=== PATIENT | male | born 1965 | race Caucasian/White ===

== ENCOUNTER 2024-10-04 13:43 | Emergency (ER) | payer OTHER, SELFPAY ==
[2024-10-04 13:55] VITALS: BP 147/70; PULSE 68; RESP 18; TEMP 36.9; O2SAT 97; BMI 27.7
--- NOTE | 2024-10-04 15:20 | ED.MALEGU ---
HPI - Male Genitourinary General Chief complaint: Urogenital-Male Stated complaint: Sent from [place], Severe R Hydroureteronephros Time Seen by Provider: 10/04/24 15:00 Source: patient Mode of arrival: Ambulatory History of Present Illness HPI Narrative: 59y male history of hypertension dyslipidemia diabetes was seen at the [place] earlier today had a CT scan done because he was having some back pain found to have severe right hydro ureteral nephrosis to the level distal ureter where there is a 5.4 mm calculus. Mild left hydronephrosis with severe tacked it pelviectasis and hydroureter. Focal thickening of the left anterolateral bladder indeterminate. This can be postsurgical if the years have been surgically reimplanted. If equivocal or not concordant with prior stenting imaging or history recommend cystoscopy for direct visualization was given in the report to the patient and told to come to the ER. He currently has mild low back pain at this time and has no problems voiding otherwise. Other than what is stated 14 point review of system is negative. Related Data Home Medications ?Medication ?Instructions ?Recorded ?Confirmed metoprolol succinate 50 mg 50 mg PO DAILY 10/04/24 10/04/24 tablet,extended release 24 hr Previous Rx's ?Medication ?Instructions ?Recorded hydrocodone 5 mg-acetaminophen 325 1 tab PO Q4-6H PRN pain #20 tabs 10/04/24 mg tablet tamsulosin 0.4 mg capsule (Flomax) 0.4 mg PO DAILY #30 caps 10/04/24 Allergies Allergy/AdvReac Type Severity Reaction Status Date / Time No Known Drug Allergies Allergy Verified 10/04/24 13:56 Review of Systems Review of Systems ROS Unobtainable: All systems reviewed & are unremarkable except as noted in HPI and below Patient History Smoking Status: Never smoker Alcohol type: wine Exam Narrative Exam Narrative: GENERAL: [59] year old patient appears stated age. Well-developed patient, in mild distress. HEAD: Atraumatic. Normocephalic. EYES: Pupils equal round and reactive. Extraocular motions intact. No scleral icterus. No injection or drainage. NECK: Trachea midline. Non tender CARDIOVASCULAR: Regular rate and rhythm without murmurs, gallops, or rubs. RESPIRATORY: Clear to auscultation. Breath sounds equal bilaterally. No wheezes, rales, or rhonchi. GASTROINTESTINAL: Abdomen soft, non-tender, nondistended. EXTREMITIES: No edema or joint tenderness. BACK: Nontender without deformity or crepitance. No flank tenderness. NEURO: AOx3. SKIN: No rash or erythema of visible areas Initial Vital Signs Initial Vital Signs: Vital Signs Temperature 98.5 F 10/04/24 13:55 Pulse Rate 68 10/04/24 13:55 Respiratory Rate 18 10/04/24 13:55 Blood Pressure 147/70 H 10/04/24 13:55 Pulse Oximetry 97 10/04/24 13:55 Oxygen Delivery Method Room Air 10/04/24 13:55 Course Orders Ordered: ED Orders 10/04/24 15:00 Urine Microscopic Stat 10/04/24 15:20 CBC Auto Diff [Complete Blood Count AUTO DIFF] Stat CMP [Comprehensive Metabolic Panel] Stat Vital Signs Vital signs: Vital Signs - 8 hr 10/04/24 13:55 Temperature 98.5 F Pulse Rate 68 Respiratory Rate 18 Blood Pressure 147/70 H Pulse Oximetry 97 Oxygen Delivery Method Room Air MDM - Male Genitourinary Lab Data Labs: Urine Dip Bedside Urine Glucose Negative Bedside Urine Bilirubin - Negative Bedside Urine Ketone - Negative Urine Specific [place] 1.010 Bedside Urine Occult Blood + Bedside Urine pH 6.0 Bedside Urine Protein - Negative Bedside Urine Urobilinogen - Negative Bedside Urine Nitrite - Negative Bedside Urine Leukocytes - Negative Esterase MDM Narrative Medical decision making narrative: All lab work, vital signs, nurse triage note, medication list, previous ER visits, and all imaging studies reviewed. CT scan from [place] showed right severe hydroureteronephrosis to the level of the distal ureter where there is a 5.4 mm calculus. Mild left hydronephrosis with severe pelviectasis and hydroureter. WBC 5.6 hemoglobin 13.3 platelet 146 glucose 115 BUN 20 creatinine 0.99 urine was normal. DC home on Flomax strainer and [place] for pain and follow up with urologist. He is here visiting in [facility] for the next 10 days. Differential diagnosis JOSEPH, kidney stone, UTI, sepsis. D/c home on [place] Flomax strainer and to follow up with Dr. Echeverria urology MD Discharge Plan Departure Patient Disposition: Home Clinical Impression: Kidney stone Instructions: DI for Kidney Stones Activity Restrictions/Additional Instructions: Return with new or worsening symptoms. Follow up with Urology if no improvement in symptoms or unable to past kidney. Keep hydrated. Take medicines as directed. Prescriptions: New tamsulosin [Flomax] 0.4 mg capsule 0.4 mg PO DAILY Qty: 30 0RF hydrocodone-acetaminophen 5-325 mg tablet 1 tab PO Q4-6H PRN (Reason: pain) Qty: 20 0RF No Action metoprolol succinate 50 mg tablet extended release 24 hr 50 mg PO DAILY Stand Alone Forms: Patient Portal/API
[2024-10-04] MEDS: LACTATED RINGERS 1,000 ML 1000 ML IV (15:25)
[2024-10-04 15:34] VITALS: PULSE 64; O2SAT 97
[2024-10-04 15:35] VITALS: BP 137/73; PULSE 66; O2SAT 97
[2024-10-04 15:41] LABS: Culture Indicated Urine Cult Not Indicated
[2024-10-04 15:53] LABS: Hematocrit 36.4 % (41-53); Hemoglobin 13.3 g/dL (13.5-17.5); Lymphocytes Absolute Auto 1100 /uL (1100-4500); Mean Corpuscular HGB Conc 36.6 % (30-36); Mean Corpuscular Hemoglobin 32.6 PG (26-34); Mean Corpuscular Volume 88.9 fL (80-100); Platelet Count 146 X10^3/uL (150-400)
[2024-10-04 15:59] LABS: Alanine Aminotransferase 26 IU/L (<50); Albumin 4.6 g/dL (3.5-5.0); Albumin Globulin Ratio 1.8 (1.0-2.8); Alkaline Phosphatase 39 U/L (38-126); Blood Urea Nitrogen 20 mg/dL (9-20); Calcium 9.6 mg/dL (8.4-10.2); Carbon Dioxide 27 mmol/L (22-32); Chloride 108 mmol/L (98-107); Estimated Glomerular Filt Rate > 60 mL/min (>60); Globulin 2.6 g/dL (1.7-4.1); Glucose 115 mg/dL (70-99); HEMOLYSIS < 15 (0-50); Potassium 3.8 mmol/L (3.4-5.1); Sodium 142 mmol/L (137-145); Total Protein 7.2 g/dL (6.3-8.2)
[2024-10-04 16:00] VITALS: BP 121/67; PULSE 64; O2SAT 96
[2024-10-04 16:15] LABS: Add Manual Diff / Slide Review SLIDE REVIEW
[2024-10-04 16:17] LABS: RBC Morphology Normal Morphology
[2024-10-04 16:30] VITALS: BP 125/70; PULSE 66; O2SAT 97
[2024-10-04] MEDS: TAMSULOSIN 0.4 MG CAPSULE PO (16:49)
== END 2024-10-04 17:00 | disposition home or self-care (01) ==
PROVIDERS: Emergency Provider Family Medicine
DX: N20.0 Calculus of kidney (principal)
CPT/HCPCS: 80053; 81003; 81015; 85025; 96360; 99284

== ENCOUNTER → 2024-11-03 11:21 | Outpatient (CLI) | payer OTHER, SELFPAY ==
--- NOTE | 2024-11-03 11:22 | DI.CT.S_ITS ---
PROCEDURE: CT KIDNEY URETER BLADDER (KUB) INDICATIONS: 59 y/o M w/ a 5mm right distal ureterolith, eval for passage TECHNIQUE: CT of the abdomen and pelvis was obtained without intravenous contrast. Coronal and sagittal reformats were performed. For radiation dose reduction, the following was used: automated exposure control, adjustment of mA and/or kV according to patient size. COMPARISON: None. FINDINGS: Image quality: Diagnostic. Lower Chest: No significant findings. ABDOMEN: Liver: Signs of chronic diffuse hepatocellular disease. No definite focal lesion seen. Gallbladder: No radiopaque gallstones or wall thickening. Biliary ducts: No biliary dilation. Pancreas: No ductal dilation. Spleen: Size is within normal limits. Adrenal Glands: No adrenal nodules. Kidneys and Ureters: There is severe right hydronephrosis as well as the right hydroureter. There are 2 calculi in the distal portion of the right ureter, near the pelvic brim. The more superior calculus measures 9 x 7 mm, attenuation values of 659 Hounsfield units. The more inferior calculus measures 5.5 x 3 mm. There is normal caliber of the ureter more distally. There is also moderate dilatation of left extrarenal pelvis with moderate left hydroureter, mild left hydronephrosis. There is a punctate calculus in the interpolar region of the left renal pelvis. Stomach and Bowel: Normal colonic caliber, without significant wall thickening. The appendix is normal Peritoneum: No abnormal intraperitoneal fluid. No free air. Ventral Wall: No significant hernia. Abdominal Nodes: No retroperitoneal or mesenteric adenopathy by size criteria. Vessels: Aorta and inferior vena cava are normal in size. PELVIS: Pelvic Organs: Unremarkable. Bladder: Unremarkable. Pelvic Nodes: No enlarged lymph nodes. Miscellaneous: No inguinal hernias are seen. Bones: No aggressive osseous abnormality. IMPRESSION: 1. There are 2 calculi in the distal portion of the right ureter near the pelvic brim measuring up to 9 mm. There is severe right hydronephrosis. 2. There is however also moderate left hydroureter and dilatation of the extrarenal pelvis, suggesting the possibility of component of underlying bladder outlet obstruction. This can be reassessed on follow-up studies. Dictated by: Chriss Ashley M.D. on 11/04/2024 at 14:55 Approved by: Chriss Ashley M.D. on 11/04/2024 at 15:00
== END ==
LOC: CT 11:22
PROVIDERS: Referring Provider Urology; Visit Provider Urology
DX: N13.2 Hydronephrosis with renal and ureteral calculous obstruction (principal)
CPT/HCPCS: 74176